=== PATIENT | female | born 2000 | race Two or more races ===

== ENCOUNTER 2022-09-04 18:25 | Emergency (ER) | payer OTHER ==
[~2022-09-04] VITALS: Ht 162.6 cm; Wt 86.2 kg
[2022-09-04] MEDS ORDERED: ABATINEX680 MG PO (18:56)
[2022-09-04] MEDS ORDERED: PANTOPRAZOLE SO20 MG PO (18:57)
[2022-09-04] MEDS ORDERED: DUI500 PO (23:29)
== END 2022-09-04 23:43 | disposition home or self-care (01) ==
LOC: ER 18:25
DX: N39.0 Urinary tract infection, site not specified (principal); N83.201 Unspecified ovarian cyst, right side